=== PATIENT | female | born 1985 | race Caucasian/White ===

== ENCOUNTER 2023-02-09 11:07 | Emergency (ER) | payer OTHER, BC, SELFPAY ==
[2023-02-09 11:09] VITALS: BP 155/85; PULSE 98; RESP 16; TEMP 36.6; O2SAT 98; BMI 38.0
--- NOTE | 2023-02-09 11:35 | RAD_ITS ---
STUDY: X-RAY - LEFT KNEE REASON FOR EXAM: Female, 37 years old. Pain following fall. TECHNIQUE: 4 view(s) of the knee. COMPARISON: None. FINDINGS: Normal visualized distal femur. Normal visualized proximal tibia and fibula. Normal proximal tibiofibular articulation. Normal medial femorotibial compartment. Normal lateral femorotibial compartment. Normal patellofemoral articulation. The soft tissue structures are unremarkable. RAD/Knee 4 or More Views IMPRESSION: Normal x-ray examination of the knee. Electronically Signed: Royer Russell MD at 12:05 EDT ,
--- NOTE | 2023-02-09 11:47 | ED.VIS.LOWEX ---
HPI History of Present Illness Chief Complaint: Lower Extremity Injury Informant: patient Narrative Narrative: Patient slipped at work yesterday on a wet floor. She went down and hurt her left knee. She is not sure exactly how it was hit to her band but it did go behind her. She has pain mostly in the anterior surface. She does have a history of a patellar fracture when she was in third grade but never had surgery. She denies any other injury in the fall. She is not on any blood thinners. PFSH PFSH Allergy/AdvReac Type Severity Reaction Status Date / Time Penicillins Allergy Rash Verified 02/09/23 11:11 ROS ROS ED Constitutional Constitutional ED: Denies chills or fever(s) Cardiovascular Cardiovascular: Denies chest pain Respiratory/Chest Respiratory/Chest: Denies cough Gastrointestinal Gastrointestinal: Denies nausea or vomiting Musculoskeletal Musculoskeletal: Reports arthralgias; Denies back pain, myalgias or neck pain Integumentary Denies abscess, Abrasions or rash Neurologic Neurologic: Denies paresthesias or weakness Hematologic/Lymphatic Hematologic/Lymphatic: Denies easy bleeding, easy bruising or lymphadenopathy Allergic/Immunologic Allergic/Immunologic ED: Denies urticaria EXAM Physical Exam Narrative Exam Narrative: General: Patient awake alert sitting on the edge of the bed comfortable. HEENT shows no trauma. Cardiorespiratory shows easy unlabored breathing. Skin shows no rash pallor. No abrasions. Extremity: She has a small area of swelling just inferior and medial to the patella on the left. Her extensor mechanism is intact. There is no overall effusion. Knee is stable to Carmen as well as some valgus stress. I see no indication of ligamentous disruption. It is not warm or red. Const Vital Signs: 02/09/23 11:09 Temperature 98 F Temperature Source Temporal Pulse Rate 98 Respiratory Rate 16 Blood Pressure 155/85 H Blood Pressure Mean 108 Pulse Ox 98 Oxygen Delivery Method Room Air MDM MDM MDM Narrative Medical decision making narrative: My independent interpretation of the patient's 4 view left knee x-ray shows no acute fracture or dislocation. Final reading is normal x-ray examination of the knee. Patient has contusion on the knee. No sign of effusion or infection. No sign of ligamentous injury. At this point. No laxity noted on exam. Ice rest and time should be appropriate. If this is still hurting in the next week or so it may need repeat imaging or further evaluation. Radiography Diagnostic Testing: Clinical Impression(s) from Imaging Studies Knee X-Ray 02/09/23 11:35 IMPRESSION: Normal x-ray examination of the knee. Electronically Signed: Royer Russell MD at 12:05 EDT , Discharge Plan Triage Chief Complaint: Lower Extremity Injury ED Provider: Sacha Pedro Dx/Rx/DC Orders Clinical Impression: Work related injury, Fall from slipping, Contusion of knee, left Instructions: ED Contusion, Lower Extremity Primary Care Provider: Care Physician,No Primary Referrals: NOT,DEFINED [Non-Staff] - Clinic,NOW [Non-Staff] - 3-5 Days if not improving Activity Restrictions/Additional Instructions: Tylenol, Motrin, or Aleve for soreness. Ice and rest. Disposition Disposition: Home, Self Care
== END 2023-02-09 13:09 | disposition home or self-care (01) ==
LOC: ED 11:57
PROVIDERS: Emergency Provider Emergency Medicine; Visit Provider Emergency Medicine
DX: S80.02XA Contusion of left knee, initial encounter (principal); W01.10XA Fall on same level from slipping, tripping and stumbling with subsequent striking against unspecified object, initial encounter; Y92.69 Other specified industrial and construction area as the place of occurrence of the external cause
CPT/HCPCS: 73564; 99282